=== PATIENT | male | born 1960 | race African-American/Black ===

== ENCOUNTER 2018-10-10 09:48 | Observation (INO) | payer OTHER ==
[~2018-10-10] VITALS: Ht 182.9 cm; Wt 108.8 kg
[2018-10-10] MEDS ORDERED: ASPIRIN 325 MG TAB PO STA (10:14)
[2018-10-10] MEDS ORDERED: morphine 4 MG/ML VIAL IV STA (10:14)
[2018-10-10] MEDS ORDERED: ONDANSETRON 4 MG INJ IV STA (10:14)
--- NOTE | 2018-10-10 10:23 | ERD ---
ER Documentation Chief Complaint Chief Complaint abdominal pain, nausea, chest pain HPI This is a 58-year-old male who is here for multiple complaints. He said that last night around 9 PM he developed substernal chest pain with palpitations shortness of breath and diaphoresis. No radiation of pain. No prior cardiac history. 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 He said he has a lot of nausea especially when he takes his Flomax. He said he also had some left lower quadrant pain yesterday but none today. No vomiting or diarrhea no fever or cough ROS All systems reviewed and are negative except as per history of present illness. Medications Home Meds Reported Medications Tamsulosin Hcl* (Tamsulosin Hcl*) 0.4 Mg Cap.er.24h, 0.4 MG PO HS, CAP 10/10/18 Propranolol Hcl* (Propranolol Hcl*) 20 Mg Tablet, 20 MG PO DAILY, TAB 10/10/18 Simvastatin* (Zocor*) 20 Mg Tablet, 20 MG PO QHS, #30 TAB 10/10/18 Sucralfate* (Carafate*) 1 Gm Tab, 1 GM PO AC MEALS AND BEDTIME, TAB 10/10/18 Duloxetine Hcl* (Cymbalta*) 20 Mg Capsule.dr, 20 MG PO BID, CAP 10/10/18 Gabapentin* (Gabapentin*) 300 Mg Capsule, 300 MG PO TID, #90 CAP 10/10/18 Ferrous Sulfate* (Ferrous Sulfate*) 325 Mg Tabec, 325 MG PO BID, TAB 10/10/18 Zolpidem Tartrate* (Zolpidem Tartrate*) 5 Mg Tablet, 5 MG PO QHS PRN for INSOMNIA, #30 TAB 10/10/18 Allergies Allergies: Coded Allergies: No Known Allergy (Unverified , 10/10/18) FmHx Family History: No coronary disease Physical Exam Vitals Vital Signs Date Temp Pulse Resp B/P (MAP) Pulse Ox O2 O2 Flow FiO2 Time Delivery Rate 10/10/18 Nasal 10:17 Cannula 10/10/18 97.1 70 19 140/106 100 09:50 (117) Physical Exam Const: Well-developed, well-nourished Head: Atraumatic, normocephalic Eyes: Normal Conjunctiva, PERRLA, EOMI, normal sclera, no nystagmus ENT: Normal External Ears, Nose and Mouth, moist mucus membranes. Neck: Full range of motion. No meningismus, no lymphadenopathy. Resp: Clear to auscultation bilaterally, no wheezing, rhonchi, rales Cardio: Tachycardia, no murmurs, S1 S2 present Abd: Soft, non tender x 4, ascites. Normal bowel sounds, no guarding or rebound, no pulsitile abdominal masses or bruits Skin: No petechiae or rashes, no ecchymosis , no maculopapular rash Back: No midline or flank tenderness Ext: No cyanosis, or edema, FROM x 4, normal inspection, neurovascularly intact x 4 Neur: Awake and alert, STR 5/5 x 4, sensation intact x 4, no focal findings, cerebellum intact Psych: Normal Mood and Affect Result Diagram: 10/10/18 1020 10/10/18 1020 Results 24 hrs Laboratory Tests Test 10/10/18 10:20 White Blood Count 6.5 10^3/ul Red Blood Count 5.45 10^6/ul Hemoglobin 16.5 g/dl Hematocrit 49.4 % Mean Corpuscular Volume 90.6 fl Mean Corpuscular Hemoglobin 30.3 pg Mean Corpuscular Hemoglobin Concent 33.4 g/dl Red Cell Distribution Width 18.6 % Platelet Count 159 10^3/UL Mean Platelet Volume 9.0 fl Immature Granulocytes % 0.200 % Neutrophils % 59.7 % Lymphocytes % 27.4 % Monocytes % 11.6 % Eosinophils % 0.6 % Basophils % 0.5 % Nucleated Red Blood Cells % 0.0 /100WBC Immature Granulocytes # 0.010 10^3/ul Neutrophils # 3.9 10^3/ul Lymphocytes # 1.8 10^3/ul Monocytes # 0.8 10^3/ul Eosinophils # 0.0 10^3/ul Basophils # 0.0 10^3/ul Nucleated Red Blood Cells # 0.0 10^3/ul Prothrombin Time 14.8 Sec Prothrombin Time Ratio 1.2 INR International Normalized Ratio 1.15 Activated Partial Thromboplast Time 32.5 Sec D-Dimer 317.63 ng/ml D-Dimer Comment Sodium Level 144 mmol/L Potassium Level 3.4 mmol/L Chloride Level 103 mmol/L Carbon Dioxide Level 22 mmol/L Anion Gap 19 Blood Urea Nitrogen 11 mg/dl Creatinine 1.08 mg/dl Est Glomerular Filtrat Rate mL/min > 60 mL/min Glucose Level 119 mg/dl Calcium Level 9.2 mg/dl Total Bilirubin 2.6 mg/dl Direct Bilirubin 0.00 mg/dl Indirect Bilirubin 2.6 mg/dl Aspartate Amino Transf (AST/SGOT) 74 IU/L Alanine Aminotransferase (ALT/SGPT) 23 IU/L Alkaline Phosphatase 182 IU/L Troponin I < 0.012 ng/ml B-Type Natriuretic Peptide 146 PG/ML Total Protein 9.4 g/dl Albumin 4.3 g/dl Globulin 5.10 g/dl Albumin/Globulin Ratio 0.84 Current Medications Medications Dose Sig/Katt Start Time Status Last (Trade) Ordered Route PRN Stop Time Admin Dose Reason Admin Aspirin 325 mg ONCE STAT 10/10/18 DC 10/10/18 (Aspirin) PO 10:14 10:34 10/10/18 10:17 Morphine 4 mg ONCE STAT 10/10/18 DC 10/10/18 Sulfate IV 10:14 10:34 (morphine) 10/10/18 10:17 Ondansetron 4 mg ONCE STAT 10/10/18 DC 10/10/18 HCl (Zofran IV 10:14 10:34 Inj) 10/10/18 10:17 Iohexol 100 ml @ ud STK-MED 10/10/18 DC 10/10/18 ONCE .ROUTE 10:52 11:10 10/10/18 10:53 Sodium 100 ml @ ud STK-MED 10/10/18 DC 10/10/18 Chloride ONCE .ROUTE 10:52 11:10 10/10/18 10:53 IV Flush 10 ml STK-MED 10/10/18 DC 10/10/18 (NS 10 ml) ONCE .ROUTE 10:52 11:11 10/10/18 10:53 Procedures/MDM EKG: Rate/Rhythm: Sinus tachycardia heart rate 123, nonspecific ST changes QRS, ST, QT: NORMAL PA, QRS, QT] Impression: Abnormal EKG Ordering MD: IGNACIO NAIK DO Location: E/R Room/Bed: PROCEDURE: XR Chest. CLINICAL INDICATION: chest pain TECHNIQUE: Single frontal view of the chest was obtained COMPARISON: None FINDINGS: The heart and mediastinum are within normal limits. There is mild elevation of the right diaphragm. The lungs are clear. There is no pleural effusion or pneumothorax. RPTAT: AA IMPRESSION: No acute disease. .Wilmar Levine MD, Date Time Electronically viewed and signed by .Wilmar Levine MD, MD on 10/10/2018 10:49 .S/ CC: IGNACIO NAIK DO [id number] PROCEDURE: CTA Chest. CLINICAL INDICATION: chest pain TECHNIQUE: The study was performed utilizing a multidetector CT scanner. Direct spiral 1 mm axial sections were obtained from the thoracic inlet to the upper abdomen with the use of 100 cc of Omnipaque 350 nonionic intravenous cont rast material and reformatted at 3 mm. Coronal, sagittal and 3-D angiographic reformations were obtained. The images were reviewed on a PACS workstation. CT D I 34 mCi Dose 679 mGy/cm Individualized dose optimization technique was used for the performance of this exam. This included 1. Automated exposure control. 2. Adjustment of the mA and / or kV according to the patient's size. 3. Use of iterative reconstruction technique. COMPARISON: No prior studies are available for comparison. FINDINGS: There is no central or peripheral pulmonary embolism. No thoracic aortic dissection is seen. The ascending thoracic aorta measures 3.9 cm in transverse diameter. Main pulmonary artery is of normal caliber with no evidence of pulmonary hypertension.. No lung infiltrate or mass is seen. There is no hilar or mediastinal adenopathy or mass. No pleural or pericardial effusion is visu alized. There is no pneumothorax. There are coronary artery calcifications. No upper abdominal or adrenal mass is present. There is fatty infiltration of the liver. Liver has a nodular contour compatible with cirrhosis. 5 mm cyst is seen in the right lobe of the liver. The osseous structures appear normal. IMPRESSION: No pulmonary embolism. No thoracic aortic dissection. Aneurysmal dilatation ascending thoracic aorta measuring 3.9 cm in transverse diameter.. No pneumonia. Cirrhotic liver with fatty infiltration. Small hepatic cyst. Coronary artery calcifications. .Jarred Palafox MD, MD Date Time Electronically viewed and signed by .Jarred Palafox MD, on 10/10/2018 11:10 .A/ CC: IGNACIO NAIK DO [id number] No evidence of wheezing or aortic issue happening at this time. We will still admit him for cardiac workup. Patient is To outside facility will contact them for transfer to [facility] Dep[facility] Diagnosis: Primary Impression: Chest pain Chest pain type: unspecified Qualified Codes: R07.9 - Chest pain, unspecified Condition: Stable IGNACIO NAIK DO Oct 10, 2018 10:23
[2018-10-10] MEDS ORDERED: FER325 PO (10:40)
[2018-10-10] MEDS ORDERED: ZOLP5TAB7 PO (10:40)
[2018-10-10] MEDS ORDERED: GABA300C16 PO (10:40)
[2018-10-10] MEDS ORDERED: DULO20CA43 PO (10:41)
[2018-10-10] MEDS ORDERED: SUCR1TAB56 PO (10:41)
[2018-10-10] MEDS ORDERED: SIMV20TA PO (10:42)
[2018-10-10] MEDS ORDERED: PROP20TA4 PO (10:43)
[2018-10-10] MEDS ORDERED: TAMS0.4C2 PO (10:43)
[2018-10-10] MEDS ORDERED: IOHEXOL 100 ML ONE (10:52)
[2018-10-10] MEDS ORDERED: SOD CHLORIDE 0.9% 100 ML ONE (10:52)
[2018-10-10] MEDS ORDERED: ACETAMINOPHEN 325 MG TAB PO PRN (14:30)
[2018-10-10] MEDS ORDERED: ONDANSETRON 4 MG INJ IV PRN (14:30)
[2018-10-10] MEDS ORDERED: METOPROLOL 50 MG TAB PO ONE (16:00)
[2018-10-10] MEDS ORDERED: NITROGLYCERIN (SL) 0.4 MG TAB SL PRN (17:30)
[2018-10-10] MEDS ORDERED: METOPROLOL 5 MG INJ IV PRN (17:30)
--- NOTE | 2018-10-10 18:01 | CONS ---
DATE OF ADMISSION: 10/10/2018 DATE OF CONSULTATION: 10/10/2018 TYPE OF CONSULTATION: Cardiology. REASON FOR CONSULTATION: Chest pain, palpitations, assess for acute coronary syndrome, assess for cardiac arrhythmia. REQUESTING PHYSICIAN: Figueroa Hernandez MD HISTORY OF PRESENT ILLNESS: Mr. Jones is a 58-year-old male with a history of BPH, hypertension, dyslipidemia, recently diagnosed cirrhosis per patient due to EtOH, who presented with complaints of palpitations, chest pain, abdominal pain, nausea which started after he took his baseline medications per patient on an empty stomach. The patient states that earlier today he has taken Flomax and has recently been started for him and began to have a headache, rapid heart rate as well as abdominal pain and chest pain. The patient then took the remainder of medications and states that he continued to feel worse and therefore sent here to the emergency department. Upon arrival, temperature of 98.3, blood pressure 140/106, pulse 70, respiratory rate 19, satting 100%. The patient's labs were notable for white blood cell count of 6.5, platelet count 159, sodium 144, potassium 3.4, creatinine 1.0, BUN 11, AST 74, ALT 23, troponin negative, BNP of 146, INR of 1.1. The patient's chest x-ray reveals heart rate recorded as faster with sinus tachycardia, right atrial enlargement, rate of 123 with normal axis and single PVC, nonspecific ST and T abnormalities. The patient was subsequently treated with metoprolol 50 p.o. x1, aspirin 325 mg x1, morphine 4 mg IV x1, Zofran and now awaits admit. The patient's most recent heart rate was documented at 67 with a blood pressure of 120/66. PAST MEDICAL HISTORY: As above in HPI. MEDICATIONS CURRENTLY IN HOSPITAL: 1. Zofran. 2. Tylenol. ALLERGIES: NO KNOWN DRUG ALLERGIES. SOCIAL HISTORY: Never smoked. Per patient has had cessation of alcohol now approximately 3 months since diagnosis of cirrhosis. No tobacco intake. No illicit drug use. FAMILY HISTORY: No history of sudden cardiac or early CAD. REVIEW OF SYSTEMS: As above in HPI. CONSTITUTIONAL: No fevers, chills. PULMONARY: No current shortness of breath. CARDIOVASCULAR: Intermittent chest pain and palpitations. GASTROINTESTINAL: Abdominal pain, cirrhosis. GENITOURINARY: No hematuria. MUSCULOSKELETAL: Degenerative joint disease. PSYCHIATRIC: No documented psych history. NEUROLOGIC: No documented history of CVA. ENDOCRINE: No documented history of diabetes mellitus or thyroid disease. PHYSICAL EXAMINATION: VITAL SIGNS: Temperature 98.3, blood pressure 120/66, pulse 67, respiratory rate 20, satting 99%. GENERAL: The patient is alert, awake, currently in no acute distress. NECK: JVP is approximately 9 cm of water. CHEST: Fair movement throughout, mild decreased breath sounds at bases bilaterally. HEART: Regular rate and rhythm. Normal S1, S2, I/ systolic murmur nondisplaced PMI. ABDOMEN: Positive bowel sounds, soft. Additionally distended. EXTREMITIES: No significant pitting edema. A 1+ pulses bilateral posterior tibial. LABORATORY DATA: As above in HPI. No further labs for my review at this time. IMAGING STUDIES: As above in HPI with patient undergoing an additional CTA that revealed no pulmonary embolism, no thoracic aortic dissection, aneurysm dilatation in ascending aorta at 3.9 cm and cirrhotic liver, fatty infiltration, coronary artery calcifications and a chest x-ray that revealed no acute disease. ELECTROCARDIOGRAM: As above in HPI. No further electrocardiograms for my review at this time. IMPRESSION: 1. Chest pain, assess for acute coronary syndrome, currently resolved. 2. Abnormal electrocardiogram with nonspecific ST and T-wave abnormalities, assess for acute coronary syndrome. 3. Tachycardia on admit, sinus tachycardia, question of anxiety and pain. 4. Hypertension. 5. Liver cirrhosis secondary to EtOH. 6. EtOH abuse. 7. Increased AST. 8. Mildly increased BNP. RECOMMENDATIONS: 1. At this time, we would admit the patient to telemetry monitoring to follow rhythm and rate control closely. 2. We will complete the patient's rule out for myocardial infarction to ensure the patient's constellation of symptoms will not result in acute coronary syndrome such as an acute myocardial infarction. 3. Check fasting lipid panel for general risk stratification and initiate lipid-lowering medication as necessary. 4. Check patient's TSH test to assess the patient's current thyroid state. 5. We would resume the patient's baseline propranolol and change dosing to at least to b.i.d. Follow heart rate and blood pressure closely. 6. We will schedule patient for a 2D echo to assess patient's ejection fraction, wall motion or any major valve abnormalities and the patient was ruled out for myocardial infarction. We will consider possible stress test in this patient to further assess possibility of significant obstructive coronary artery disease lending to symptoms of chest pain and subsequently admit to the hospital. Thank you for allowing me to take part in the care of this patient. I will continue to follow him very closely with you with recommendations to be made as the patient progresses through his inpatient hospital clinical course. Dictated By: IRMA SAWYER/NEERAJ Conf#: [id number] DID#: [id number] CC: IGNACIO NAIK DO; FIGUEROA HERNANDEZ MD;*EndCC* MTDD
[2018-10-10 19:29] VITALS: PULSE 88
[2018-10-10 19:51] VITALS: Ht 182.9 cm; Wt 108.8 kg
[2018-10-10 20:00] VITALS: BP 132/90; PULSE 87; PULSE 92; RESP 18
[2018-10-10] MEDS ORDERED: POTASSIUM CHLORIDE (SR) 20 MEQ TAB PO STA (20:23)
[2018-10-10] MEDS ORDERED: morphine SULFATE/PF (2 MG/2 ML) SYG IV PRN (20:30)
[2018-10-10] MEDS ORDERED: ZOLPIDEM 5 MG TAB PO PRN (20:30)
[2018-10-10] MEDS ORDERED: TAMSULOSIN (SR) 0.4 MG CAP PO SCH (21:00)
[2018-10-10] MEDS ORDERED: ATORVASTATIN 10 MG TAB PO SCH (21:00)
[2018-10-10] MEDS: GABAPENTIN 300 MG CAP PO SCH (21:46)
[2018-10-10] MEDS: SUCRALFATE 1 GM TAB PO SCH (21:46)
[2018-10-10] MEDS: DULOXETINE 20 MG CAP DR PO SCH (21:56)
[2018-10-10] MEDS: ENOXAPARIN 40 MG/0.4 ML SYG SC SCH (22:00)
[2018-10-10 23:35] VITALS: BP 133/97; PULSE 103; RESP 17
[2018-10-10] MEDS: PROPRANOLOL 20 MG TAB PO SCH (23:35)
[2018-10-11] VITALS (8 sets, daily range): BP systolic 108–119; BP diastolic 69–72; PULSE 89–104; RESP 18–19
[2018-10-11] MEDS: SUCRALFATE 1 GM TAB PO SCH ×3 (06:20→16:58)
[2018-10-11] MEDS: PROPRANOLOL 20 MG TAB PO SCH (08:37)
[2018-10-11] MEDS: GABAPENTIN 300 MG CAP PO SCH ×2 (08:37→12:43)
[2018-10-11] MEDS: DULOXETINE 20 MG CAP DR PO SCH (08:37)
[2018-10-11] MEDS: ENOXAPARIN 40 MG/0.4 ML SYG SC SCH (08:45)
[2018-10-11] MEDS ORDERED: PROP20TA4 PO (09:02)
--- NOTE | 2018-10-11 09:57 | HP ---
DATE OF ADMISSION: 10/10/2018 CHIEF COMPLAINT: Chest pain. HISTORY OF PRESENT ILLNESS: A 58-year-old male with history of hypertension, hyperlipidemia, and alc oholic liver cirrhosis of liver, presented to the Emergency Room with complaint of a palpable chest p ain, palpitations, and abdominal pain associated with nausea. Patient took his medications on an emp ty stomach and the symptoms started afterward. He clearly notes that the pain was worse with touchin g his chest area. He denies any shortness of breath. He denies exertional symptoms. The initial ev aluation revealed a negative troponin. EKG showed sinus tachycardia with nonspecific ST and T-wave a bnormalities. Serial troponins have been negative. The patient will be evaluated by Dr. Gee in the Emergency Room. PAST MEDICAL HISTORY: 1. Hypertension. 2. Hyperlipidemia. 3. Alcoholic liver cirrhosis. 4. Benign prostatic hyperplasia. 5. Peripheral neuropathy. SOCIAL HISTORY: Patient denies history of smoking. He drank heavily until 2 months prior to admissi on. PHYSICAL EXAMINATION: GENERAL: Well-developed, well-nourished male who has been in no apparent distress. VITAL SIGNS: Stable. He is afebrile. HEENT: Extraocular muscles intact. Pupils equal, reactive to light bilaterally. Sclerae are anicte karin. Oropharynx is clear and moist. NECK: Supple, no JVD, no carotid bruit. CHEST: Clear to auscultation bilaterally. HEART: Regular rate and rhythm. No murmurs or gallops. ABDOMEN: Soft, nontender, nondistended. Normoactive bowel sounds. EXTREMITIES: No clubbing, cyanosis, or edema. NEUROLOGIC: Decreased sensation in bilateral feet. Motor strength is normal in all extremities. ASSESSMENT AND PLAN: 1. A 58-year-old male with chest pain and palpitations. Acute myocardial infarction has been ruled out. 2. Hypertension, well controlled. 3. Hyperlipidemia. 4. End-stage alcoholic liver disease. 5. Benign prostatic hyperplasia. PLAN: 1. Placed in tele observation. 2. Resume home medications including and propranolol. 3. Proceed with stress Cardiolite. 4. Review 2D echo ordered by Dr. Gee. 5. Cardiology followup. 6. Discharge planning if nuclear stress test is normal. Dictated By: RENAE WHITNEY/NEERAJ Conf#: [id number] DID#: [id number] CC: RENAE HERNANDEZ MD;*End*
[2018-10-11] MEDS ORDERED: REGADENOSON 0.4 MG/5 ML SYG ONE (10:58)
--- NOTE | 2018-10-11 11:54 | CONS ---
Date/Time of Note Date/Time of Note DATE: 10/11/18 TIME: 11:50 Assessment/Plan Assessment/Plan Hospital Course IMPRESSION: 1. Chest pain, assess for acute coronary syndrome, currently resolved.-neg trop x 3 2. Abnormal electrocardiogram with nonspecific ST and T-wave abnormalities, assess for acute coronary syndrome. 3. Tachycardia on admit, sinus tachycardia, question of anxiety and pain. 4. Hypertension. 5. Liver cirrhosis secondary to EtOH. 6. EtOH abuse. 7. Increased AST. 8. Mildly increased BNP. 9. Dyslipidemia Recc: -Tele -continue propranolol -start statin given elevated LDL -Will f/u echo -Lexiscan stress test today and if negative for ischemia then ok for d/c planning from cardiac stndpoint Result Diagram: 10/10/18 1020 10/10/18 1020 Results 24hrs Laboratory Tests Test 10/10/18 17:52 10/11/18 00:19 10/11/18 05:27 Creatine Kinase 272 H 232 H Creatine Kinase Index 0.5 0.5 Creatinine Kinase MB (Mass) 1.35 1.18 Troponin I < 0.012 < 0.012 Thyroid Stimulating Hormone (TSH) 1.430 Triglycerides Level 68 Cholesterol Level 232 H LDL Cholesterol, Calculated 167 HDL Cholesterol 51 Cholesterol/HDL Ratio 4.5 Consultation Date/Type/Reason Admit Date/Time Oct 10, 2018 at 14:12 Initial Consult Date 10/10/18 Type of Consult cardiology Reason for Consultation Chest pain Requesting Provider: RENAE HERNANDEZ MD Exam/Review of Systems Vital Signs Vitals Vital Signs Date Temp Pulse Resp B/P (MAP) Pulse Ox O2 O2 Flow FiO2 Time Delivery Rate 10/11/18 98 08:01 10/11/18 97.9 18 108/72 93 07:51 (84) 10/10/18 Room Air 23:35 Intake and Output 10/10/18 10/10/18 10/11/18 1515:00 23:00 07:00 IntakeIntake Total 500 ml OutputOutput Total 250 ml BalanceBalance 250 ml Exam Review of Systems: CONSTITUTIONAL: No fevers, chills. PULMONARY: No sob CARDIOVASCULAR:intermittent chest pain GASTROINTESTINAL: No nausea/vomiting. GENITOURINARY: No hematuria/dysuria. MUSCULOSKELETAL: No myagias/arthalgias. PSYCHIATRIC: The patient denies depression. NEUROLOGIC: No weakness Constitutional: alert Psych: no complaints Head: normocephalic Neck: supple, jvd (9 cm water) Respiratory: diminished breath sounds Cardiovascular: regular rate and rhythm Gastrointestinal: soft, distended Musculoskeletal: muscle tone (normal) Extremities: edema (none) Neurological: other (no focal deficits) Medications Medications Current Medications Ondansetron HCl (Zofran Inj) 4 mg ER BRIDGE PRN IV NAUSEA AND/OR VOMITING; Start 10/10/18 at 14:30; Stop 10/11/18 at 14:29 Acetaminophen (Tylenol Tab) 650 mg ER BRIDGE PRN PO MILD PAIN(1-3)OR ELEVATED TEMP Last administered on 10/11/18at 00:45; Admin Dose 650 MG; Start 10/10/18 at 14:30; Stop 10/11/18 at 14:29 Nitroglycerin (Nitroglycerin (Sl Tab) 0.4 Mg) 1 tab Q5M PRN SL ANGINA; Start 10/10/18 at 17:30 Propranolol HCl (Inderal) 20 mg BID PO Last administered on 10/11/18at 08:37; Admin Dose 20 MG; Start 10/10/18 at 21:00 Metoprolol Tartrate (Lopressor) 5 mg Q4 PRN IV HR>110 Hold SBP<100; Start 10/10/18 at 17:30 Duloxetine HCl (Cymbalta) 20 mg BID PO Last administered on 10/11/18at 08:37; Admin Dose 20 MG; Start 10/10/18 at 21:00 Gabapentin (Neurontin) 300 mg TID PO Last administered on 10/11/18 08:37; Admin Dose 300 MG; Start 10/10/18 at 21:00 Sucralfate (Carafate) 1 gm AC MEALS AND BEDTIME PO Last administered on 06:20; Admin Dose 1 GM; Start 10/10/18 at 21:00 Tamsulosin HCl (Flomax) 0.4 mg HS PO Last administered on 10/10/18at 21:46; Admin Dose 0.4 MG; Start 10/10/18 at 21:00 Zolpidem Tartrate (Ambien) 5 mg QHS PRN PO INSOMNIA; Start 10/10/18 at 20:30 Enoxaparin Sodium (Lovenox) 40 mg DAILY SC Last administered on 10/11/18at 08:45; Admin Dose 40 MG; Start 10/10/18 at 21:00 Morphine Sulfate (morphine SULFATE (PF)) 2 mg Q3 PRN IV SEVERE PAIN LEVEL 7-10; Start 10/10/18 at 20:30 Atorvastatin Calcium (Lipitor) 10 mg HS PO Last administered on 10/10/18at 21:47; Admin Dose 10 MG; Start 10/10/18 at 21:00 IRMA COUGHLIN Oct 11, 2018 11:54
--- NOTE | 2018-10-11 14:42 | CARRPT ---
DATE OF PROCEDURE: 10/11/2018 PROCEDURE: Lexiscan Cardiolite stress test, electrocardiogram portion. REASON FOR STRESS TESTING: Chest pain, assess for ischemia. BASELINE VITAL SIGNS AND ELECTROCARDIOGRAM: Pulse 81, blood pressure 115/79. Electrocardiogram was normal sinus rhythm, rate of 81, normal axis, normal intervals, inferolateral T-wave inversion. PROCEDURE IN DETAILS: The patient underwent standard Lexiscan infusion protocol over 10 seconds foll owed by radiolabeled tracer. The patient's test was stopped at completion of protocol. Maximal achi eved blood pressure during the test was 104/67. Maximum heart rate during the test was 98. ELECTROCARDIOGRAM FINDINGS: The patient did not develop any new Lexiscan-induced ST or T-wave change s from baseline abnormalities. No documented PVCs. SYMPTOMS: The patient had complaints of mild shortness of breath during stress test that resolved in recovery and chest pain resolved in recovery. IMPRESSION: 1. No Lexiscan-induced ST or T-wave changes from baseline abnormalities diagnostic for ischemia. 2. Complaints of chest pain, shortness of breath which resolved in recovery. 3. No documented premature ventricular contractions during stress test. 4. Report of nuclear images to follow in separate dictation. Dictated By: IRMA SAWYER/NEERAJ Conf#: [id number] DID#: [id number] CC: RENAE HERNANDEZ MD;*EndCC*
[2018-10-11] MEDS ORDERED: ATORVASTATIN 20 MG TAB PO SCH (21:00)
--- NOTE | 2018-10-11 21:26 | RADRPT ---
Echocardiogram Report Patient Name: LATHA MCLEAN Gender: Male Date: 1960 Study Date: 11-Oct-2018 Welder Fabricator: Laure Gamez [facility] Location: [id number] Ref. Physician: IRMA GEE Quality: Technically Difficult Study Procedures: Transthoracic echocardiogram with complete 2D, M-Mode, and doppler examination. Indications: Chest Pain. 2D/M Mode Doppler Measurement Value Normal Ranges Measurement Value Normal Ranges LVIDd 2D 3.5 3.5 - 5.6 cm AV Peak Amado 1.1 m/sec LVIDs 2D 2.5 2.1 - 4.1 cm AV Peak PG 5.0 mmHg FS 2D 28.2 % LVOT Peak Amado 0.8 m/sec LVPWd 2D 1.3 0.6 - 1.1 cm LVOT Peak PG 2.0 mmHg IVSd 2D 1.5 0.6 - 1.1 cm MV E Peak Amado 0.4 m/sec IVS/LVPW 2D 1.2 MV A Peak Amado 0.8 m/sec AoR Diam 2D 2.6 2.0 - 3.7 cm MV E/A 0.5 LA/Ao 2D 1 0 - 1 MV Decel Time 99 msec EDV 2D 42.1 cm3 MV E/A 0.5 ESV 2D 15.6 cm3 TR Peak Amado 2.2 m/sec LA Dimen 2D 3.1 2.3 - 4.0 cm TR Peak PG 20.0 mmHg RVSP 23.0 mmHg RA Pressure 3.0 Findings Left Ventricle: Lower limits of normal systolic function. Normal left ventricular cavity size. Moderate concentric left ventricular hypertrophy. Ejection fraction is visually estimated at 5055 %. Tissue Doppler/Mitral Doppler indices are consistent with impaired relaxation (Stage I diastolic dysfunction). Right Ventricle: Normal right ventricular size. Normal right ventricular systolic function. Left Atrium: The left atrium is normal in size. Right Atrium: The right atrium is normal in size. Mitral Valve: Normal appearance and function of the mitral valve with trace physiologic regurgitation. Aortic Valve: No significant aortic stenosis or insufficiency. Aortic cusps appear mildly calcified. Tricuspid Valve: Normal appearance of the tricuspid valve. Estimated peak PA systolic pressure 23 mmHg. There is trace tricuspid regurgitation. Pulmonic Valve: Pulmonic valve not well visualized. Pericardium: Normal pericardium with no significant pericardial effusion. Aorta: Normal aortic root. IVC: Normal size and normal respiratory collapse consistent with normal right atrial pressure. Conclusions Lower limits of normal systolic function. Normal left ventricular cavity size. Moderate concentric left ventricular hypertrophy. Ejection fraction is visually estimated at 50-55 %. Tissue Doppler/Mitral Doppler indices are consistent with impaired relaxation (Stage I diastolic dysfunction). Normal appearance and function of the mitral valve with trace physiologic regurgitation. Normal appearance of the tricuspid valve. Estimated peak PA systolic pressure 23 mmHg. There is trace tricuspid regurgitation. Electronically Signed By: Irma Gee 11-Oct-2018 21:25:06 -0800 Patient Name: LATHA MCLEAN Study Date: 11-Oct-2018 [id number]
--- NOTE | 2018-10-12 19:44 | RADRPT ---
Vent Rate: 97 bpm RR Interval: 0 msec MI Interval: 148 msec QRS Duration: 82 msec QT Interval: 382 msec QTC Interval: 485 msec P-R-T Bronaugh: 62 - 34 - 104 degrees Normal sinus rhythm Right atrial enlargement Nonspecific ST and T wave abnormality Prolonged QT Abnormal ECG Electronically Signed By: Jerald Lizama [id number]
== END 2018-10-11 17:07 | disposition home or self-care (01) ==
LOC: E/R 09:48 → TEL 14:12
PROVIDERS: ADMIT Internal Medicine; ATTEND Internal Medicine
DX: R07.9 Chest pain, unspecified (principal); R00.2 Palpitations; I10 Essential (primary) hypertension; E78.5 Hyperlipidemia, unspecified; N40.0 Benign prostatic hyperplasia without lower urinary tract symptoms; K72.90 Hepatic failure, unspecified without coma
CPT/HCPCS: 36415; 71045; 71275; 78452; 80053; 80061; 82550; 82553; 83880; 84443; 84484; 85025; 85378; 85610; 85730; 93005; 93017; 93306; 96374; 96375; A9500; A9505; J1650; J2270; J2274; J2405; J2785; Q9967; Z7500; Z7502; Z7610; 99217; G0378